=== PATIENT | male | born 1945 | race Caucasian/White ===

== ENCOUNTER 2019-11-13 11:29 | Outpatient (CLI) | payer MEDICARE, SELFPAY ==
[2019-11-14 01:17] LABS: SARS-CoV-2 RNA PCR Positive
== END 2019-11-13 11:30 | disposition home or self-care (01) ==
LOC: CHSLAB 11:35
PROVIDERS: PCP Internal Medicine; Visit Provider Internal Medicine
DX: U07.1 COVID-19 (principal)
CPT/HCPCS: 87635; C9803; U0003

== ENCOUNTER 2021-06-28 02:01 | Day surgery (SDC) | payer MEDICARE, SELFPAY ==
--- NOTE | 2021-06-14 11:05 | PC.NURSE ---
Report to the Outpatient Waiting Room, entrance under the green pavilion located off [facility], at time _0600_ on date _06/28/21_. OR Time: _0730_. - You and your visitor will be asked a series of questions to screen for COVID 19 for your protection. - A mask is required within the hospital. One visitor will be allowed to accompany the patient into the hospital. Patients visitor will be instructed to remain with patient at all times or leave the building. We will allow the visitor to come back to the postoperative area when patient is ready. Preoperative COVID Testing Requirements: NONE Patients may have clear liquids (water, carbonated beverages, clear teas, apple juice) until 3 hours prior to surgery (0430 AM) with a maximum of 20 ounces. - No food from midnight until time of surgery Take the following medications with a SIP of water the morning of surgery: _NONE_ Medications to discontinue per ANESTHESIA - ALL VITAMINS, HERBAL SUPPLEMENTS 3 DAYS PRIOR TO SURGERY, Date to take last dose 06/24/21_ Please no deodorant, or body powder the day of surgery. No jewelry (including any body piercings) or valuables the day of surgery, leave them at home. Please take a shower or bath the night before, or the morning of, surgery with an antibacterial soap. Wear comfortable, loose fitting clothing. - Jewelry must be removed prior to entering the operating room. Rings and piercings that are not removed may be cut off. - The hospital will not accept responsibility for valuables. - Please leave all valuables, including medications, at home the day of surgery. If you are going home after surgery, a licensed wagon driver salesperson must drive you home. - NO public transportation without another adult. - We recommend that an adult stay with you for 24 hours following discharge. - We also recommend that you do not drive, make important decision, drink alcoholic beverages, or take any drugs that were not prescribed by your health care provider for at least 24 hours after your discharge time. Follow any additional instructions given to you from DR. CARRASCO. Instructions given to ___PT and asked if any additional questions and then verbalized understanding. Patient advised to call surgeon office or pre surgery nurse liaison [phone] if any additional questions.
[2021-06-14 11:21] VITALS: BP 144/76; PULSE 52; RESP 20; TEMP 37; O2SAT 97; BMI 38.9
[2021-06-28] VITALS (7 sets, daily range): BP systolic 98–156; BP diastolic 67–85; PULSE 60–72; RESP 16–18; TEMP 36.2–36.6; O2SAT 94–99
[2021-06-28] MEDS: ACETAMINOPHEN 500 MG TABLET 1000 MG PO (06:25)
--- NOTE | 2021-06-28 06:45 | WPDANESEPPF ---
Anes - Initial Pre Proc Eval Procedure: Operation Date: 06/28/21 07:30 Proposed Procedures p Right Thumb Carpal Metacarpal Suspension Arthroplasty, - Jaime Lehman MD s Right Fourth Trigger Finger Release - Jaime Lehman MD Date/Time: 06/28/21 06:45 Surgeon: Jaime Lehman MD Pre Op Diagnosis: right thumb cmc arthritis , rt 4th trigger finger Patient Data Age: 75 Gender: M Height: 1.68 m Weight: 106.6 kg Last Vital Signs Temp 36.6 C 06/28/21 06:42 Pulse 60 06/28/21 06:42 Resp 16 06/28/21 06:42 BP 132/81 06/28/21 06:42 Pulse Ox 99 06/28/21 06:42 Allergies Allergy/AdvReac Type Severity Reaction Status Date / Time codeine Allergy Intermediate severe Verified 06/28/21 06:21 headache Xvqumsv-NLZ-GyX Reductase Allergy Intermediate MUSCLE PAIN Verified 06/28/21 06:21 Inhibitor [Vmlqzlk-Pkw-Jmr Reductase Inhibitor] fluvastatin Allergy Mild Muscle Pain Verified 06/28/21 06:21 rosuvastatin Allergy Mild Muscle Pain Verified 06/28/21 06:21 Garcia Allergy Unknown WILD Uncoded 06/28/21 06:21 CHERRIES CAUSE HIVES Home Medications Medication Instructions Recorded Confirmed Type atenolol 25 mg tablet 25 mg PO HS 08/02/19 06/28/21 History melatonin 5 mg tablet 5 mg PO DAILY PRN tablet 08/02/19 06/28/21 History pitavastatin calcium 4 mg tablet 4 mg PO HS 08/02/19 06/28/21 History cholecalciferol (vitamin D3) 25 25 mcg PO HS 12/06/19 06/28/21 History mcg (1,000 unit) tablet multivitamin 1 tablet PO HS 12/06/19 06/28/21 History citalopram 20 mg PO HS 06/14/21 06/28/21 History Patient hx anesthesia problems: none Family hx anesthesia problems: none Results Review: All pre-operative results and documents have been reviewed as part of the pre-operative evaluation. [facility] Past Medical History Medical History (Updated 06/25/21 @ 14:13 by Mayur Dumont DO) Arthritis of carpometacarpal (CMC) joint of right thumb BMI 39.0-39.9,adult Hyperlipidemia Hypertension Trigger finger, right ring finger Surgical History Surgical History (Updated 06/25/21 @ 14:13 by Mayur Dumont DO) History of appendectomy History of cholecystectomy History of eye surgery History of shoulder surgery rotator cuff repairs Family History Family History Mother Cerebrovascular accident Family history of pancreatic cancer, Onset Age: 74 Patient's mother is Father Malignant neoplasm of prostate, Onset Age: 86 Sibling Cerebrovascular accident Family history of hearing loss Other Acute myocardial infarction Family history of cardiovascular disease Family history of malignant neoplasm of brain Hypertension Social History Social History Smoking packs per day: 1 Smoking cigarettes per day: 20.0 Years smoked: 30 Smoking pack-years: 30.00 Smoking status: Former smoker Tobacco type: cigarettes Second hand tobacco smoke exposure: No Smoking end date: 03/06/99 Alcohol intake: current Substance use: never Substance use type: does not use Living arrangements: with family Gender identity (if verbalized by the patient): Male Spiritual care concerns: No Anes - Eval Final PreProcedure Day of Procedure 06/28/21 06:45 Patient weight: obese Heart: regular rate and rhythm Lungs: clear to auscultation and normal air movement Airway: Mallampati scale class II Neurological: alert and oriented Last oral intake: >/= 8 hours ASA classification: III Emergent: no Anesthetic plan: proceed Anesthesia type and monitoring: general LMA and standard monitoring Results Review: All pre-operative results and documents have been reviewed as part of the pre-operative evaluation. Informed Consent: The patient's anesthetic plan and its attendant risks and benefits were discussed with the patient/family/POA. Questions were
[2021-06-28] MEDS: LACTATED RINGERS 1,000 ML 30 ML IV CONT (06:48)
--- NOTE | 2021-06-28 06:56 | WPDANESPNB ---
Anes - Peripheral Nerve Block Date/Time: 06/28/21 06:56 I have discussed with the patient/family/POA the placement of a peripheral nerve block for post-operative pain management, including associated risks, benefits, complications, and side effects. Alternative methods of post-operative analgesia were detailed. Questions were solicited and answers provided to the satisfaction of the patient/family/POA. Time-Out: A pre-procedural Time-Out was completed immediately before starting the procedure and confirmed: Patient Identification, Site, Procedure, Patient Position and the Availability of Requisite Equipment. Clinical Indications: Acute post-operative pain management requested by the operative surgeon. Nerve Block Insertion Note Anes-nerve block: supraclavicular right Patient position: supine Skin prep: chlorhexidine Needle: 22 gauge, stimulating, insulated echogenic needle. Needle length: 50 mm Technique: ultrasound Injectate: bupivacaine 0.5% with epi 5 mcg/ml (30cc- no epi) Observations: tolerated well Complications: none Procedure start time:: 721 Procedure end time:: 724
--- NOTE | 2021-06-28 07:16 | WPDHPUPDATE1 ---
History and Physical Update Update Date/Time: 06/28/21 07:16 History and Physical has been reviewed, including an updated exam of the patient. There are NO changes in the patient's condition. Risks, benefits, and alternatives have been discussed and questions answered. Patient agrees to proceed with procedure.
[2021-06-28] MEDS: KETOROLAC 15 MG/ML VIAL (*BKC) IV PUSH (07:26)
[2021-06-28] MEDS: ceFAZolin 2 GM/D5W 50 ML 2 GM/50 ML BAG IVPB (07:28)
--- NOTE | 2021-06-28 09:41 | W.PM.PROC2 ---
Procedure Note - Detailed Date of Procedure 06/28/21 Pre-op Diagnosis 1. right thumb cmc arthritis 2. rt 4th trigger finger Post-op Diagnosis Same Procedure Performed 1. Right thumb CMC suspension arthroplasty 2. Right fourth trigger finger release Surgeon Jaime Lehman MD Admissions Counselor Dang Connolly Anesthesia General and Regional Description of Procedure The patient was identified proper site identified. In the preop holding area the anesthesia team performed a right upper extremity block. He was then taken to the operating room transferred to the OR table placing him supine taking care to pad the torso and extremities. After general anesthetic induction and intubation, a nonsterile tourniquet was placed high on the right arm. The right upper extremity was prepped and draped in usual sterile fashion. Extremity was exsanguinated and tourniquet was inflated to 250 mmHg remaining up for approximately 81 minutes. A longitudinal incision was made over the FCR tendon curving radially at the base of the thenar musculature. Subcutaneous tissue bluntly dissected protecting neurovascular structures. A slip of the APL which inserted into the thenar musculature was released and marked for later repair. The thenar musculature was elevated up off of the carpus and the trapezium identified. While protecting the FCR, a trapeziectomy was performed. The a ulnar-sided distally-based 8 cm slip of FCR was then developed hand used to create a sling weaving the tendon slip between the FCR tendon and the APL tendon securing it to itself with 3-0 Ethibond suture. The EPL tendon was advanced on itself and also secured with 3-0 Ethibond suture seating the sling in the trapeziectomy site. This allowed the thumb to sit very nicely in a position of function. The EPB tendon was then reefed also with 3-0 Ethibond taking up the slack in that structure. The wound was irrigated with sterile antibiotic solution. The wrist capsule and thenar musculature were tacked back down with 4-0 Monocryl. The slip of the EPL was reattached to the thenar musculature with 3-0 Ethibond. The wound was irrigated with sterile saline. Skin edges were reapproximated with 3-0 Monocryl and then 4-0 Prolene subcuticular stitch. Steri-Strips were applied. A longitudinal incision was made over the A1 itzel. Subcutaneous tissue was bluntly dissected down to the itzel while protecting the neurovascular bundles. The A1 itzel was identified and then transected longitudinally in line with the incision and tendons. The tendons were delivered into the wound verifying the adequacy of the release. Hemostasis was carried out. The wound was irrigated with sterile saline. Skin edges were reapproximated with 4-0 nylon suture. Sterile dressing was applied. Tourniquet was released. He tolerated the procedure well and was transferred back to a cart, then taken to the recovery area in stable condition. There were no known intraoperative complications. Perioperative antibiotics were administered. Sterile dressings applied and the tourniquet was released. Well-padded thumb spica splint was fashioned. The patient tolerated procedure well . He was awakened extubated and taken to recovery area in stable condition. There were no known intraoperative complications. Estimated blood loss was negligible. Perioperative antibiotics were administered. Estimated Blood Loss -3.0 Tourniquet Time 81 Drains No Packing No Pathology None sent Complications No immediate complications Condition Stable Disposition PACU
== END 2021-06-28 10:55 | disposition home or self-care (01) ==
PROVIDERS: PCP Internal Medicine; Visit Provider Orthopaedic Surgery
PROC: (CPT 25447; principal; 2021-06-28 07:30)
PROC: (CPT 26055; 2021-06-28 07:30)
DX: M18.11 Unilateral primary osteoarthritis of first carpometacarpal joint, right hand (principal); M65.341 Trigger finger, right ring finger; G89.18 Other acute postprocedural pain; I10 Essential (primary) hypertension; E78.5 Hyperlipidemia, unspecified; Z87.891 Personal history of nicotine dependence; E66.9 Obesity, unspecified; Z68.37 Body mass index [BMI] 37.0-37.9, adult
CPT/HCPCS: 25447; 26055; 64415; A9270; J0690; J1100; J1885; J2250; J2370; J2405; J2704; J3010; J7120

== ENCOUNTER 2021-08-18 09:00 | Outpatient (RCR) | payer MEDICARE, SELFPAY ==
--- NOTE | 2021-07-20 11:31 | OTOPEVAL ---
OCCUPATIONAL THERAPY INITIAL EVALUATION REPORT 07/20/21 Thank you for referring Moises Stearns to [facility].? The patient is scheduled to be seen for therapy? 1-2x/week for 4 weeks. Please review, sign, date and return this plan of care REBECCA. I agree with and certify that the following plan of care is medically necessary. 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 Respiratory History Hx COVID-19 Yes: NOV 2020 Gastrointestinal History Hx Appendectomy Yes Hx Cholecystectomy Yes Hx Ulcer Yes: 1960'S Genitourinary History Hx Genitourinary Disorders No Significant History Musculoskeletal History Hx Arthritis Yes Hx Fractures Yes: LT ARM, LT ANKLE Hx Orthopedic Surgery Yes: ORIF LT ARM, ORIF LT ANKLE/HARDWARE REMOVAL, BILATERAL SHOULDERS Hx Other Musculoskeletal Disorders Yes: RT 4TH TRIGGER FINGER, RT THUB ARTHRITIS Hematological History Hx Hematological Disorders No Significant History Endocrine History Hx Endocrine Disorders No Significant History HEENT History Hx Cataracts Yes: BILATERALLY REMOVED Hx Eye Surgery Yes Hx Other HEENT Disorders Yes: READING GLASSES, [place]- HEARING AIDS X2 Integumentary History Hx Excision Skin Lesion Yes: FACE Hx Other Skin Disorders Yes: SKIN CA Reproductive History Hx Reproductive Disorders No Significant History Psychosocial History Hx Psychiatric Disorders No Significant History Pain History History of Any Previous or Ongoing No Significant History Instance of Pain Anesthesia History Hx Anesthesia Reactions No Significant History Other History Hx Cancer Yes: SKIN Hx Implanted Device Yes: LT ARM, POSSIBLY LT LOWER LEG Hx Other Surgeries Yes: BILATERAL BLEPHAROPLASTY Evaluation Information Problem Diagnosis 1st CMC arthroplasty, right hand Onset 06/28/21 Cause OA Subjective Information Patient reports he has been Query Text:As Reported By Patient/ heavily favoring the left hand Family for ADL tasks. He has been using his left to lift/carry objects and when starting his
--- NOTE | 2021-08-18 09:46 | OTOPEVAL ---
OCCUPATIONAL THERAPY RE-EVALUATION REPORT AND DISCHARGE SUMMARY 08/18/21 Surendra is a 75 year-old, right handed male who is 7 weeks s/p right 1st CMC arthroplasty. He has made excellent progress with therapy, noting improvements with functional ROM and strength of the right thumb/wrist. He reports some residual soreness with use, but understands this will get better with time. He is currently independent with all materials and in agreement with discharge. Thank you for referring Moises Stearns to [facility]. Please review, sign, date and return this D/C Note REBECCA. I agree with and certify that the following plan of care is medically necessary. Referring Physician Date Referring Provider: Jaime Lehman MD Evaluation Information Diagnosis 1st CMC arthroplasty, right hand Onset 06/28/21 Cause OA Subjective Information Patient reports that his right Query Text:As Reported By Patient/ hand is doing more with ADLs Family and housework. He states that he continues to compensate when using the hand due to weakness and some residual pain. He is back to using tools, doing some landscaping, and mowing the grass. Pain Assessment Timing of Pain Assessment Timing of Pain Assessment Assessment Pain Scale Pain Scale Used Numeric (1 - 10) Self Report Pain Assessment Right Thumb(s) Reported Pain Level 5 Pain Description Aching Lowest Pain Intensity 0 Greatest Pain Intensity 6 Pain Aggravating Factors Exercise/Activity Pain Score Pain Score 5: Self Report Interventions Used Interventions Used By Clinicians Rest Upper Extremity Range of Motion Wrist Range of Motion Right Wrist Flexion - Active 65 Wrist Extension - Active 50 Wrist Radial Deviation - Active 15 Wrist Ulnar Deviation - Active 30 Wrist Range of Motion Comments Wrist flexion improved from 55* Wrist extension improved from 30* RD improved from 5* UD remained WFL at 30* Finger Range of Motion Right Reason Not Measured WFL/Right Thumb Range of Motion Right Thumb MCP Flexion - Active 35 Thumb IP Flexion - Active 60 Thumb CMC Radial Abduction - Active 45 Thumb CMC Palmar Abduction - Active 45 Thumb Range of Motion Comments MCP flexion improved from 30* IP flexion improved from 55* CMC radial abd improved from 30* CMC palmar abd improved from 35* He is now able to oppose to the base of digit V. Hand G
== END 2021-08-18 14:08 | disposition home or self-care (01) ==
LOC: ANHOT 09:00
PROVIDERS: PCP Internal Medicine; Referring Provider Orthopaedic Surgery; Visit Provider Orthopaedic Surgery
DX: M18.11 Unilateral primary osteoarthritis of first carpometacarpal joint, right hand (principal)
CPT/HCPCS: 97110; 97140; 97165

== ENCOUNTER → 2022-07-15 14:19 | Outpatient (CLI) | payer MEDICARE, SELFPAY ==
--- NOTE | ~2022-07-15 | XR_ITS ---
EXAMINATION: XR chest 2V 07/15/2022 14:35 INDICATION: Cough PROCEDURE: 2 view chest COMPARISON: 11/09/2007 FINDINGS: The lungs are clear. The cardiomediastinal silhouette is within normal limits. There are no pleural effusions. There is no pneumothorax suspected. IMPRESSION: 1: NO ACUTE CARDIOPULMONARY DISEASE. Reviewed, dictated and finalized at location B.
== END ==
PROVIDERS: PCP Internal Medicine; Visit Provider Internal Medicine
DX: R05.9 Cough, unspecified (principal)
CPT/HCPCS: 71046

== ENCOUNTER 2023-01-19 08:07 | Outpatient (CLI) | payer MEDICARE, SELFPAY ==
--- NOTE | ~2023-01-19 | XR_ITS ---
EXAMINATION: XR lg joint inject/asp w image DATE: 01/19/2023 09:00 INDICATION: Left shoulder pain. TECHNIQUE: A time-out was performed to verify the patient's name, date of , and procedure to b e performed. The procedure including the risks, benefits, and alternatives was discussed with the pat ient. Risks discussed included bleeding and infection. The patient understood the risks and agreed to proceed. The skin overlying the left glenohumeral joint was prepped and draped in usual sterile fas hion. Anesthetic was administered with 1% lidocaine subcutaneously. A 22 G needle was advanced unde r fluoroscopic guidance into the joint. Subsequently, injectate consisting of 5 mL 1% lidocaine and 2 2 mL 10 mg/mL Kenalog was instilled. The needle was removed and the entry site was cleaned and virgil ssed. There were no immediate complications. Fluoroscopy exposure time was 0.1 minutes. The total nu mber of images was 1. FINDINGS: Real-time fluoroscopy demonstrates the needle in the left mid humeral joint. Patient's pain prior to procedure:8/10. Patient's pain following the procedure: 04/15. IMPRESSION: 1. Fluoroscopy guided left glenohumeral joint injection of local anesthetic and steroid with decrease in the patient's presenting pain. Reviewed, dictated and finalized at location A. DEVELOPMENT MANAGER
== END 2023-01-19 08:08 | disposition home or self-care (01) ==
PROVIDERS: PCP Internal Medicine; Visit Provider Orthopaedic Surgery
DX: M25.512 Pain in left shoulder (principal)
CPT/HCPCS: 20610; 77002; J3301

== ENCOUNTER 2023-05-24 15:14 | Outpatient (CLI) | payer MEDICARE, SELFPAY ==
--- NOTE | ~2023-05-24 | XR_ITS ---
XR chest 2V DATE: 05/24/2023 15:42 INDICATION: Cough TECHNIQUE: PA and lateral views COMPARISON: 07/15/2022 2 view chest FINDINGS: Normal heart size. Aortic arch calcification. No hilar or mediastinal enlargement. No pulmonary infiltrate or consolidation, pleural effusion or pulmonary vascular congestion or pneumo thorax. Diffuse osteopenia. Dextroscoliosis of the thoracic spine. Status post cholecystectomy. IMPRESSION: No active cardiopulmonary disease Aortic atherosclerosis Osteopenia Reviewed, dictated and finalized at location B.
--- NOTE | ~2023-05-24 | XR_ITS ---
Lumbosacral Spine: AP and lateral views Clinical History: Pain Findings: The normal lordotic curve is maintained. The vertebral bodies and posterior elements are i ntact. The intervertebral disc spaces are preserved. Moderate to advanced facet arthropathy is prese nt throughout the lumbar spine, worst at L4-L5 and L5-S1. The sacroiliac joints are normally outlined . Impression: Extensive facet joint degenerative changes. Reviewed, dictated and finalized at location M. Impression: Extensive facet joint degenerative changes.
== END 2023-05-24 15:15 | disposition home or self-care (01) ==
LOC: ANHIMG 15:16
PROVIDERS: PCP Internal Medicine; Visit Provider Internal Medicine
DX: M54.9 Dorsalgia, unspecified (principal); R05.9 Cough, unspecified; M85.88 Other specified disorders of bone density and structure, other site; I70.0 Atherosclerosis of aorta
CPT/HCPCS: 71046; 72100

== ENCOUNTER 2023-06-12 08:55 | Outpatient (RCR) | payer MEDICARE, SELFPAY ==
--- NOTE | 2023-06-12 09:57 | OPREHPOC ---
Outpatient Therapy Plan of Care This is a Multidisciplinary Plan of Care that may contain components documented by all disciplines (PT, OT, and ST.) PT Problem 1 PT Problem #1 Knowledge Deficit PT Goal 1 Goal Patient to demonstrate independence with HEP Target Visit 2 PT Problem 2 PT Problem #2 Pain PT Goal 1 Goal 1. patient to report highest pain at 2/10 2. 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 patient to report ability to walk >30 minutes with no back pain 2. patient to lift 20# from floor to waist with no increase in low back pain to return to house hold tasks at PLOF 3. patient to score 0% disability on Back Index Target Visit 4
--- NOTE | 2023-06-12 09:57 | PTOPEVAL1 ---
Assessment and note entered by Madelin White DPT Evaluation Information Assessment Status Evaluation Diagnosis low back pain Onset 06/06/23 Subjective Information Patient reports that he has had back pain for years. He reports that about 2 months ago he had a cough and his back pain increased. He reports he has had x-rays and shows severe facet degeneration at L4-L5 and L5-S1. He reports since initial pain started pain has improved with steroid. He reports pain does not radiate. He reports pain is mild. He reports he is able to do all of his activities but has increased soreness following. He reports most difficulty with lifting, walking and bending. 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 Reported Pain Level Pain Score 1: Self Report Assessment PT Clinical Summary Mr. Stearns is a 77 year old male who presents to PT with low back pain. Patient demonstrates impaired posture, decreased lumbar ROM, and decreased LE strength impairing his ability to lift objects from the ground, ambulate prolonged distances and complete house hold tasks. He would benefit from skilled PT to address impairments and return to PLOF. Plan of Care Interventions Electrical Stimulation,Gait Training,Hot Pack/Cold Pack,Manual Therapy,Neuro Re-education,Patient/ Caregiver Educati,Therapeutic Activities, Therapeutic Exercise PT Services Indicated Yes Treatment Frequency and 1x weekly for 4 visits Duration These treatments will address the objective and functional deficits as defined above. The patient will be advanced safely and appropriately in order for the patient to progress towards his/her prior level of function. Additional exercises will be introduced and as well as a comprehensive home exercise program upon discharge, if needed, ?to ensure carryover of functional gains achieved in the clinic. This treatment plan has been reviewed and agreement upon by the patient.
== END 2023-06-19 20:00 | disposition home or self-care (01) ==
LOC: CHSPT 08:55
PROVIDERS: Visit Provider Internal Medicine
DX: M54.9 Dorsalgia, unspecified (principal)
CPT/HCPCS: 97110; 97161

== ENCOUNTER 2023-07-15 20:03 | Observation (INO) | payer MEDICARE, SELFPAY ==
--- NOTE | ~2023-07-15 | CT_ITS ---
EXAMINATION: CTA chest PE protocol DATE: 07/15/2023 23:00 INDICATION: Chest pain TECHNIQUE: Computed tomography angiography (CTA) of the chest was performed with 100 mL Omnipaque-350 intravenous contrast timed to evaluate the pulmonary arteries. Coronal maximum intensity projection 3D-reconstructions were created by the technologist. Automated exposure control and iterative reconst ruction technique were employed. Exam dose: 770.92 mGy-cm total exam DLP. COMPARISON: 07/15/2023 PA and lateral chest FINDINGS: There is diagnostic contrast enhancement of the pulmonary arteries and no evidence of pulmo nary embolism. No thoracic aortic aneurysm or dissection. There is thoracic aortic great vessel coronary artery calc ification. Normal heart size. No pericardial effusion. No hilar or mediastinal mass lesion or lymphadenopathy. No pulmonary consolidation or pulmonary mass lesion is evident. Normal morphology of the adrenal glands. Status post cholecystectomy. Moderately prominent anterior wedge compression fracture deformity of T10, chronic. IMPRESSION: No evidence of pulmonary embolism Reviewed, dictated and finalized at [facility]. Reviewed, dictated and finalized at [facility].
--- NOTE | ~2023-07-15 | XR_ITS ---
EXAMINATION: XR chest 2V Exam Date/Time: 07/15/2023 20:36 CDT HISTORY: chest pain/SOB/ MIDLINE CHEST PAIN, EXTENDS TO BACK. Comparison: 05/24/2023. RESULT: Lines, tubes, and devices: Cholecystectomy clips. Lungs and pleura: Low volumes with crowding, otherwise clear. Cardiomediastinal silhouette: Stable. Other: No acute osseous or upper abdominal finding. Stable old mild compression deformity at T11. IMPRESSION: No acute cardiopulmonary process. Reviewed, dictated and finalized at [facility].
--- NOTE | 2023-07-15 20:04 | ECG_ITS ---
SEE SCANNED COPY FOR CONFIRMED REPORT MTDD
[2023-07-15 20:23] VITALS: BP 153/85; PULSE 67; RESP 19; TEMP 37.2; O2SAT 97
[2023-07-15 20:28] LABS: Basophils Absolute Auto 0.1 K/mm3 (0.0-0.1); Basophils Percent Auto 0.6 % (0.2-1.2); Eosinophils Absolute Auto 0.1 K/mm3 (0-0.3); Eosinophils Percent Auto 1.8 % (0-4.4); Hematocrit 52.6 % (42.0-52.0); Hemoglobin 17.3 g/dL (14.0-18.0); Immature Granulocyte Absolute 0.02 K/mm3 (0.00-0.031); Immature Granulocyte Percent A 0.3 % (0-0.5); Lymphocytes Absolute Auto 2.11 K/mm3 (0.9-3.2); Lymphocytes Percent Auto 26.6 % (18.3-44.2); Mean Corpuscular HGB Conc 32.9 g/dl (32-36); Mean Corpuscular Hemoglobin 31.3 pg (26-34); Mean Corpuscular Volume 95.1 fl (80-100); Mean Platelet Volume 9.5 fl (7.4-10.4); Monocytes Absolute Auto 0.9 K/mm3 (0.1-0.6); Monocytes Percent Auto 10.7 % (2.6-8.5); Neutrophils Absolute Auto 4.8 K/mm3 (1.3-6.7); Platelet Count Result 167 k/mm3 (150-375); Red Blood Count 5.53 M/mm3 (4.6-6.20); Red Cell Distribution Width 13.8 % (11.5-14.5); White Blood Count 7.9 K/mm3 (4.5-10.0)
[2023-07-15 20:42] LABS: Alanine Aminotransferase 25 U/L (6-50); Albumin Level 4.4 g/dL (3.5-5.1); Alkaline Phosphatase 56 U/L (38-126); Anion Gap 7 mmol/L (4-12); Aspartate Amino Transferase 35 U/L (17-59); Bilirubin,Total 0.7 mg/dL (0.2-1.3); Blood Urea Nitrogen 18 mg/dL (9-20); Calcium 9.4 mg/dL (8.4-10.2); Carbon Dioxide 29 mmol/L (22-30); Chloride 102 mmol/L (98-107); Estimated CRCL calculation 52 ml/min; Estimated Glomerular Filt Rate 54; Glucose 100 mg/dL (65-110); Lipase 61 U/L (23-300); Potassium 4.5 mmol/L (3.4-5.0); Sodium 138 mmol/L (137-145)
[2023-07-15 20:45] LABS: Partial Thromboplastin Time 29.7 Seconds (22.3-36.8); Prothrombin Time 13.2 Seconds (11.1-14.7)
[2023-07-15 20:53] LABS: Troponin I < 0.012 ng/mL (0.000-0.034)
--- NOTE | 2023-07-15 22:18 | ED.CHESTPAIN ---
HPI - Chest Pain General Chief Complaint: Chest Pain <Aga Matthews PA-C - Last Filed: 07/16/23 02:09> Stated Complaint: chest pain <Aga Matthews PA-C - Last Filed: 07/16/23 02:09> Time Seen by Provider: 07/15/23 22:08 <Aga Matthews PA-C - Last Filed: 07/16/23 02:09> History of Present Illness HPI narrative: 77-year-old male with a history of obesity, hyperlipidemia, hypertension and V-tach in 2002 presents to the emergency department with his at bedside for chest pain that started around 10:30 a.m.. Patient states he was seated when the chest pain started. He states it has been constant throughout the day is worse with exertion. He states that when he got to the emergency department the chest pain felt somewhat better while he was sitting in a wheelchair in triage, however when he got up from the wheelchair into the exam bed the pain significantly worsened again. He states it is associated shortness of breath and radiates to the center of his back. He denies cough or congestion, lower extremity edema, abdominal pain, recent surgeries or hospitalizations, fever, history of VTE. States he has been compliant with his medications. He denies known history of CAD or stent placement. States he had a cardiac catheterization performed in 2002 which was unremarkable. He has not had a catheterization since. His hand sewer is Dr. Luis. Echo performed on 05/30/2022 is significant for mild concentric left ventricular hypertrophy, mild enlargement of the left ventricle, her diastolic dysfunction grade 1, ejection fraction measured at 52%. Patient endorses a familial cardiac history including his father who had 3 stents placed. <Aga Matthews PA-C - Last Filed: 07/16/23 02:09> Related Data Home Medications: Home Medications Medication Instructions Recorded Confirmed atenolol 25 mg tablet 25 mg PO HS 08/02/19 07/16/23 pitavastatin calcium 4 mg tablet 4 mg PO HS 08/02/19 07/16/23 (Livalo) multivitamin 1 tablet PO HS 08/31/21 07/16/23 venlafaxine 37.5 mg 37.5 mg PO HS 05/12/24 05/12/24 capsule,extended release 24 hr <Aga Matthews PA-C - Last Filed: 07/16/23 02:09> Allergies/Adverse Reactions: Allergies Allergy/AdvReac Type Severity Reaction Status Date / Time codeine Allergy Intermediate severe Verified 05/24/23 13:38 headache Dchxlks-XKR-BoZ Reductase Allergy Intermediate MUSCLE PAIN Verified 05/24/23 13:38 Inhibitor [Ettkcov-Iik-Bkp Reductase Inhibitor] fluvastatin Allergy Mild Muscle Pain Verified 05/24/23 13:38 rosuvastatin Allergy Mild Muscle Pain Verified 05/24/23 13:38 Garcia Allergy Unknown WILD Uncoded 05/24/23 13:38 CHERRIES CAUSE HIVES <Aga Matthews PA-C - Last Filed: 07/16/23 02:09> Review of Systems Review of Systems: CONSTITUTIONAL: Denies fever, chills, or sweats. EYES: Denies visual changes, redness, or discharge. ENT: Denies rhinorrhea, congestion, sore throat, or otalgia. CARDIOVASCULAR: See HPI RESPIRATORY: Denies cough or dyspnea. GASTROINTESTINAL: Denies abdominal pain, nausea, vomiting, or diarrhea. GENITOURINARY: Denies dysuria or hematuria. SKIN: Denies rash or itching. MUSCULOSKELETAL: Denies back pain, joint pain, or myalgia. NEUROLOGIC: Denies headache, numbness, or weakness. PSYCHIATRIC: Denies anxiety or depression. <Aga Matthews PA-C - Last Filed: 07/16/23 02:09> [facility] Past Medical History Medical History: Medical History Bilateral shoulder pain BMI 39.0-39.9,adult Degenerative arthritis of knee, bilateral Hyperlipidemia Hypertension Melanoma of face <Aga Matthews PA-C - Last Filed: 07/16/23 02:09> Surgical History Surgical History: Surgical History Arthritis of carpometacarpal (CMC) joint of right thumb Right thumb CMC suspension arthrop
[2023-07-15] MEDS: ASPIRIN 81 MG CHEWABLE TABLET 324 MG PO (22:35)
[2023-07-15] MEDS: NITROGLYCERIN SL 0.4 MG TABLET SUBLINGUAL (23:07)
[2023-07-15 23:41] VITALS: BP 120/78; PULSE 77; RESP 22; O2SAT 94
[2023-07-15 23:46] VITALS: BP 118/64; PULSE 72; RESP 19; O2SAT 96
[2023-07-15 23:51] VITALS: BP 124/75; PULSE 73; RESP 17; O2SAT 95
[2023-07-15 23:56] VITALS: BP 129/77; PULSE 71; RESP 25; O2SAT 95
[2023-07-16] VITALS (21 sets, daily range): BP systolic 117–136; BP diastolic 69–91; PULSE 67–94; RESP 16–25; TEMP 36.4–36.9; O2SAT 94–100; BMI 42.3
--- NOTE | 2023-07-16 00:19 | PC.NURSE ---
this rn assumed care of patient. this rn took patient report from Hossein Leong.
--- NOTE | 2023-07-16 00:30 | ECG_ITS ---
SEE SCANNED COPY FOR CONFIRMED REPORT MTDD
[2023-07-16 01:27] LABS: NT Pro B Type Natriuretic Pept 203 pg/mL (19.9-100)
[2023-07-16 01:29] LABS: Troponin I < 0.012 ng/mL (0.000-0.034)
--- NOTE | 2023-07-16 01:43 | ADMGEN ---
This patient, Moises Stearns, was admitted to IMU Room 212-01 at 0132. Patient/family oriented to hospital policies and general routines including ID bracelet, bed and alarms, visiting hours, pain management, procedures, bathroom and other care routines, personal items, smoking policy, room service/diet, and visiting hours. Information on how to activate the Rapid Response Team has been discussed. Patient/Family are encouraged to report perceived risks to care and to ask questions if they do not understand what they are told or what they should do.
--- NOTE | 2023-07-16 01:55 | PM.IMHP ---
H&P: HPI History of Present Illness Date/Time: 07/16/23 01:55 Chief Complaint: chest pain Narrative: EXAMINATION:? XR chest 2V Exam Date/Time:? 07/15/2023 20:36 CDT HISTORY: chest pain/SOB/ MIDLINE CHEST PAIN, EXTENDS TO BACK. ? Comparison:? 05/24/2023. RESULT: Lines, tubes, and devices:? Cholecystectomy clips. Lungs and pleura:? Low volumes with crowding, otherwise clear. Cardiomediastinal silhouette:? Stable. Other:? No acute osseous or upper abdominal finding. Stable old mild compression deformity at T11. ? IMPRESSION: No acute cardiopulmonary process. Review of Systems Review of Systems: chest pain PMFSH Past Medical History Medical History Bilateral shoulder pain BMI 39.0-39.9,adult Degenerative arthritis of knee, bilateral Hyperlipidemia Hypertension Melanoma of face Surgical History Surgical History Arthritis of carpometacarpal (CMC) joint of right thumb Right thumb CMC suspension arthroplasty June 28, 2021 History of appendectomy History of cholecystectomy History of eye surgery History of shoulder surgery rotator cuff repairs Trigger finger, right ring finger Right fourth trigger finger release June 28, 2021 Family History Family History (Updated 07/16/23 @ 02:22 by Dang Villegas RN) Mother Patient's mother is Family history of pancreatic cancer, Onset Age: 74 Cerebrovascular accident Father Malignant neoplasm of prostate, Onset Age: 86 Acute myocardial infarction Family history of malignant neoplasm of brain Sibling Family history of hearing loss Cerebrovascular accident Other Family history of cardiovascular disease Hypertension Social History Social History Smoking packs per day: 1 Smoking cigarettes per day: 20.0 Years smoked: 30 Smoking pack-years: 30.00 Smoking status: Former smoker Tobacco type: cigarettes Second hand tobacco smoke exposure: No Smoking end date: 03/06/99 Alcohol intake: former Alcohol use details: Quit 2010 Substance use: never Substance use type: does not use Do You Feel Safe in your Home?: Yes Lack of Transportation: No Lack of Food: Never True Current Housing: I Have Housing Concerned About Future Housing: No Difficulty Paying Gas/Electric Bills: No Difficulty Paying for Meds: No Currently Unemployed: No Education: High School Diploma/GED Difficulty w/ Childcare or Family Care: No Living arrangements: with family Occupation/Education: retired Gender identity (if verbalized by the patient): Male Spiritual care concerns: No Meds Home Medications and Allergies Home Medications Medication Instructions Recorded Confirmed Type atenolol 25 mg tablet 25 mg PO HS 08/02/19 07/16/23 History pitavastatin calcium 4 mg tablet 4 mg PO HS 08/02/19 07/16/23 History (Livalo) multivitamin 1 tablet PO HS 08/31/21 07/16/23 History venlafaxine 37.5 mg 37.5 mg PO HS 07/16/23 07/16/23 History capsule,extended release 24 hr Allergies Allergy/AdvReac Type Severity Reaction Status Date / Time codeine Allergy Intermediate severe Verified 05/24/23 13:38 headache Kiiiygk-BZZ-DdT Reductase Allergy Intermediate MUSCLE PAIN Verified 05/24/23 13:38 Inhibitor [Ljvmuwj-Xfe-Pxn Reductase Inhibitor] fluvastatin Allergy Mild Muscle Pain Verified 05/24/23 13:38 rosuvastatin Allergy Mild Muscle Pain Verified 05/24/23 13:38 Garcia Allergy Unknown WILD Uncoded 05/24/23 13:38 CHERRIES CAUSE HIVES Vital Signs Vital Signs - 24 hr 07/15/23 20:23 07/15/23 22:26 07/15/23 23:41 Temperature 98.9 F Pulse Rate 67 77 Respiratory Rate 19 22 H Blood Pressure 153/85 H 120/78 Pulse Oximetry 97 94 Oxygen Delivery Room Air 07/15/23 23:46 07/15/23 23:51
[2023-07-16] MEDS: traZODone HCL 50 MG TABLET PO (03:18)
[2023-07-16 04:55] LABS: Troponin I < 0.012 ng/mL (0.000-0.034)
--- NOTE | 2023-07-16 16:11 | PM.IMPN ---
Progress Note: A&P Assessment and Plan (1) Chest pain: Qualifiers: Chest pain type: other chest pain Qualified Code(s): R07.89 - Other chest pain Code(s): R07.9 - Chest pain, unspecified Status: Acute Assessment and Plan: Patient with chest pain for many hours that resolved with NTG. Trop negative x3. CTA chest showing no PE and no acute findings. EKG showing NSR with PVCs. Patient had a stress test 07/12/22 showing negative EKG portion with normal myocardial perfusion imaging and normal global LV fxn EF 51% Consider esophageal spasm or food lodged in the distal esophagus. (2) Obesity, Class III, BMI 40-49.9 (morbid obesity): Code(s): E66.01 - Morbid (severe) obesity due to excess calories Status: Acute Assessment and Plan: Educated about the benefits of leading a healthy lifestyle. (3) Degenerative arthritis of knee, bilateral: Qualifiers: Osteoarthritis type: primary Qualified Code(s): M17.0 - Bilateral primary osteoarthritis of knee Code(s): M17.0 - Bilateral primary osteoarthritis of knee Status: Chronic Assessment and Plan: Stable (4) Bilateral shoulder pain: Qualifiers: Chronicity: chronic Qualified Code(s): M25.511 - Pain in right shoulder; M25.512 - Pain in left shoulder; G89.29 - Other chronic pain Code(s): M25.511 - Pain in right shoulder; M25.512 - Pain in left shoulder Status: Chronic Assessment and Plan: Stable Subjective Date/time seen: 07/16/23 16:11 Interval history: 77yo male with HTN, HLD and obesity here for chest pain. Patient developed chest pain that was pressure and radiated to the back on the morning of admission after eating breakfast. He remained at home for about 8 hours before finally coming to the ED for evaluation. He was lifting and moving rugs a week before without chest pain. He does complain of feeling fatigued all the time and can sleep up to 16 hours. He has seen multiple doctors for this and is now on testosterone for the past 6 months. He states the pain resolved after taking NTG within 5 minutes. No GERD. No n/v. He currently feels 'sore' in the chest. Had diarrhea x6 BMs yesterday. No sick contacts. No melana or hematochezia Exam Narrative: AF 98.5 131/76 82 18 95% ra Gen - NARD Chest - CTA bilaterally, nml RR CV - RRR S1/S2. Tele showing NSR with PVCs Abd - Soft, NT/ND, Positive BS Ext - No pedal edema Psych - Nml mood and affect Skin - Warm and dry Objective Data Vital Signs Vital Signs: Vital Signs - 24 hr 07/15/23 20:23 07/15/23 22:26 07/15/23 23:41 Temperature 98.9 F Pulse Rate 67 77 Respiratory Rate 19 22 H Blood Pressure 153/85 H 120/78 Pulse Oximetry 97 94 Oxygen Delivery Room Air 07/15/23 23:46 07/15/23 23:51 07/15/23 23:56 Temperature Pulse Rate 72 73 71 Respiratory Rate 19 17 25 H Blood Pressure 118/64 124/75 129/77 Pulse Oximetry 96 95 95 Oxygen Delivery 07/16/23 00:01 07/16/23 00:06 07/16/23 00:11 Temperature Pulse Rate 75 70 72 Respiratory Rate 20 20 17 Blood Pressure 123/77 130/91 H 130/79 Pulse Oximetry 95 97 94 Oxygen Delivery 07/16/23 00:16 07/16/23 00:21 07/16/23 00:26 Temperature Pulse Rate 70 70 69 Respiratory Rate 25 H 23 H 21 H Blood Pressure 118/78 122/69 133/73 Pulse Oximetry 97 95 96 Oxygen Delivery 07/16/23 00:31 07/16/23 02:00 07/16/23 02:18 Temperature 97.6 F Pulse Rate 71 67 68 Respiratory Rate 21 H 21 H Blood Pressure 131/79 132/79 Pulse Oximetry 97 100 Oxygen Delivery 07/16/23 02:00 07/16/23 01:52 07/16/23 04:56 Temperature 97.7 F Pulse Rate 70 81 Respiratory Rate 21 H Blood Pressure 117/69 Pulse Oximetry 95 Oxygen Delivery Room Air 07/16/23 04:00 07/16/23 04:00 07/16/23 06:00 Temperature Pulse Rate 73 70 Respiratory Rate Blood Pressure Pulse Oximetry Oxygen Delivery Room Air
--- NOTE | 2023-07-16 16:51 | PM.DS ---
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 (morbid obesity): Code(s): E66.01 - Morbid (severe) obesity due to excess calories Status: Acute (5) Degenerative arthritis of knee, bilateral: Qualifiers: Osteoarthritis type: primary Qualified Code(s): M17.0 - Bilateral primary osteoarthritis of knee Code(s): M17.0 - Bilateral primary osteoarthritis of knee Status: Chronic (6) Bilateral shoulder pain: Qualifiers: Chronicity: chronic Qualified Code(s): M25.511 - Pain in right shoulder; M25.512 - Pain in left shoulder; G89.29 - Other chronic pain Code(s): M25.511 - Pain in right shoulder; M25.512 - Pain in left shoulder Status: Chronic DS: Summary Hospital Course Reason for hospitalization: 77yo male with HTN, HLD and obesity here for chest pain. Please see H&P for details. Hospital Course: Patient developed chest pain that was pressure and radiated to the back on the morning of admission after eating breakfast. He remained at home for about 8 hours before finally coming to the ED for evaluation. He was lifting and moving rugs a week before without chest pain. He does complain of feeling fatigued all the time and can sleep up to 16 hours but this is long standing and other providers have addressed this complaint already. The chest pain resolved after taking NTG within 5 minutes in the ED. No GERD. No n/v. He currently feels 'sore' in the chest but no further pain. Mils palpable chest wall pain. Had diarrhea x6 BMs yesterday but no nausea or vomiting. No sick contacts. No melana or hematochezia. Trop negative x3. CTA chest showing no PE and no acute findings. EKG showing NSR with PVCs. Patient had a stress test 07/12/22 showing negative EKG portion with normal myocardial perfusion imaging and normal global LV fxn EF 51%. He was able to eat yesterday for lunch and dinner but not much due to feeling full quickly. Eating did not make the pain worse. He does not take excessive NSAIDs. Consider esophageal spasm or food lodged in the distal esophagus that passed with smooth muscle relaxation with NTG. He feels well. He is eating normally. He overall did well and was able to be discharged home on 07/16/23 Status at Discharge Cognitive/behavioral status at discharge: stable Time Spent with Patient Time attestation: Total time spent providing and/or coordinating discharge services: 34 minutes Time spent: Greater than 30 minutes Exam Narrative: AF 98.5 131/76 82 18 95% ra Gen - NARD Chest - CTA bilaterally, nml RR CV - RRR S1/S2. Tele showing NSR with PVCs Abd - Soft, NT/ND, Positive BS Ext - No pedal edema Psych - Nml mood and affect Skin - Warm and dry DS: Data Data Completed and Pending Labs on day of discharge: Labs from last 24 hours 07/16/23 07/16/23 07/15/23 03:57 00:55 20:22 WBC 7.9 RBC 5.53 Hgb 17.3 Hct 52.6 H MCV 95.1 MCH 31.3 MCHC 32.9 RDW 13.8 Plt Count 167 MPV 9.5 Immature Gran % (Auto) 0.3 Neut % (Auto) 60.0 Lymph % (Auto) 26.6 Tripp % (Auto) 10.7 H Eos % (Auto) 1.8 Baso % (Auto) 0.6 Lymph # (Auto) 2.11 Tripp # (Auto) 0.9 H Eos # (Auto) 0.1 Baso # (Auto) 0.1 Abs Immat Gran (auto) 0.02 Absolute Neuts (auto) 4.8 Absolute Nucleated RBC 0.000 Nucleated RBC % 0.0 PT 13.2 INR 1.0 APTT 29.7 Sodium 138 Potassium 4.5 Chloride 102 Carbon Dioxide 29 A
== END 2023-07-16 19:15 | disposition home or self-care (01) ==
LOC: ANHED 07-16 00:31 → ANHIMU 07-16 01:17
PROVIDERS: Preventive Medicine Aerospace Medicine; Admitting Provider Internal Medicine; Emergency Provider Physician Assistant; PCP Internal Medicine; Visit Provider Internal Medicine
DX: R07.89 Other chest pain (principal); R06.02 Shortness of breath; M17.0 Bilateral primary osteoarthritis of knee; M25.511 Pain in right shoulder; M25.512 Pain in left shoulder; G89.29 Other chronic pain; I10 Essential (primary) hypertension; E78.5 Hyperlipidemia, unspecified; E66.01 Morbid (severe) obesity due to excess calories; Z68.41 Body mass index [BMI] 40.0-44.9, adult; Z87.891 Personal history of nicotine dependence
CPT/HCPCS: 36415; 71046; 71275; 80053; 83690; 83880; 84484; 85025; 85610; 85730; 93005; 99285; A9270; G0378; Q9967

== ENCOUNTER 2023-08-14 00:38 | Day surgery (SDC) | payer MEDICARE, SELFPAY ==
[2023-08-07 10:11] VITALS: BMI 42.9
[2023-08-14 07:38] VITALS: BP 149/80; PULSE 69; RESP 18; TEMP 36.2; O2SAT 95; BMI 41.1
[2023-08-14] MEDS: LACTATED RINGERS 1,000 ML 150 ML IV CONT (08:01)
--- NOTE | 2023-08-14 08:11 | WPDANESEPPF ---
Anes - Initial Pre Proc Eval Procedure: Operation Date: 08/14/23 09:00 Proposed Procedures p Esophagogastroduodenoscopy&Screen Colon - Calvin Karimi MD Date/Time: 08/14/23 08:11 Surgeon: Calvin Karimi MD Pre Op Diagnosis: Dyskinesia of esophagus, Neoplasm screening Patient Data Age: 77 Gender: M Height: 1.65 m Weight: 112.1 kg Last Vital Signs Temp 97.2 F L 08/14/23 07:38 Pulse 69 08/14/23 07:38 Resp 18 08/14/23 07:38 BP 149/80 H 08/14/23 07:38 Pulse Ox 95 08/14/23 07:38 O2 Del Method Room Air 08/14/23 07:38 Allergies Allergy/AdvReac Type Severity Reaction Status Date / Time codeine Allergy Intermediate severe Verified 08/14/23 07:47 headache Rvbbblj-VIA-RuK Reductase Allergy Intermediate MUSCLE PAIN Verified 08/14/23 07:47 Inhibitor [Vgmecut-Upi-Zyx Reductase Inhibitor] fluvastatin Allergy Mild Muscle Pain Verified 08/14/23 07:47 rosuvastatin Allergy Mild Muscle Pain Verified 08/14/23 07:47 Garcia Allergy Unknown WILD Uncoded 08/14/23 07:47 CHERRIES CAUSE HIVES Home Medications Medication Instructions Recorded Confirmed Type atenolol 25 mg tablet 25 mg PO HS 08/02/19 08/14/23 History pitavastatin calcium 4 mg tablet 4 mg PO HS 08/02/19 08/14/23 History (Livalo) multivitamin 1 tablet PO HS 08/31/21 08/14/23 History venlafaxine 37.5 mg 37.5 mg PO HS 07/16/23 08/14/23 History capsule,extended release 24 hr (Effexor XR) nitroglycerin 0.4 mg sublingual 0.4 mg sublingual PRN PRN Chest 08/07/23 08/14/23 History tablet Pain Patient hx anesthesia problems: none Family hx anesthesia problems: none Results Review: All pre-operative results and documents have been reviewed as part of the pre-operative evaluation. [facility] Past Medical History Medical History (Updated 07/16/23 @ 16:52 by Andrew Gaxiola MD) Bilateral shoulder pain BMI 39.0-39.9,adult Degenerative arthritis of knee, bilateral Hyperlipidemia Hypertension Melanoma of face Surgical History Surgical History Arthritis of carpometacarpal (CMC) joint of right thumb Right thumb CMC suspension arthroplasty June 28, 2021 History of appendectomy History of cholecystectomy History of eye surgery History of shoulder surgery rotator cuff repairs Trigger finger, right ring finger Right fourth trigger finger release June 28, 2021 Family History Family History (Updated 07/16/23 @ 02:22 by Dang Villegas RN) Mother Patient's mother is Family history of pancreatic cancer, Onset Age: 74 Cerebrovascular accident Father Malignant neoplasm of prostate, Onset Age: 86 Acute myocardial infarction Family history of malignant neoplasm of brain Sibling Family history of hearing loss Cerebrovascular accident Other Family history of cardiovascular disease Hypertension Social History Social History Smoking packs per day: 1 Smoking cigarettes per day: 20.0 Years smoked: 30 Smoking pack-years: 30.00 Smoking status: Former smoker Tobacco type: cigarettes and pipe Second hand tobacco smoke exposure: No Smoking end date: 03/06/99 Alcohol intake: former Drinks per week: 3 Alcohol use details: none since 2010 Substance use: never Substance use type: does not use Do You Feel Safe in your Home?: Yes Lack of Transportation: No Lack of Food: Never True Current Housing: I Have Housing Concerned About Future Housing: No Difficulty Paying Gas/Electric Bills: No Difficulty Paying for Meds: No Currently Unemployed: No Education: High School Diploma/GED Difficulty w/ Childcare or Family Care: No Living arrangements: with family Occupation/Education: retired Gender identity (if verbalized by the patient): Male Spiritual care concerns: No Anes - Eval F
--- NOTE | 2023-08-14 08:45 | PM.HPGS ---
History of Present Illness History of Present Illness Consent: Risks, benefits, and alternatives have been discussed and questions answered. Patient agrees to proceed with procedure. Chief complaint: Dyskinesia of esophagus, Neoplasm screening Narrative: Moises Stearns is a 77 year old male here with non cardiac chest pain, also needs screening colonoscopy- last one 10 years ago Review of Systems Review of Systems: All systems reviewed & are unremarkable except as noted in HPI and below PMFSH Past Medical History Medical History (Updated 08/14/23 @ 08:46 by Calvin Karimi MD) Bilateral shoulder pain BMI 39.0-39.9,adult Colon cancer screening Degenerative arthritis of knee, bilateral Hyperlipidemia Hypertension Melanoma of face Non-cardiac chest pain Surgical History Surgical History Arthritis of carpometacarpal (CMC) joint of right thumb Right thumb CMC suspension arthroplasty June 28, 2021 History of appendectomy History of cholecystectomy History of eye surgery History of shoulder surgery rotator cuff repairs Trigger finger, right ring finger Right fourth trigger finger release June 28, 2021 Family History Family History (Updated 07/16/23 @ 02:22 by Dang Villegas RN) Mother Patient's mother is Family history of pancreatic cancer, Onset Age: 74 Cerebrovascular accident Father Malignant neoplasm of prostate, Onset Age: 86 Acute myocardial infarction Family history of malignant neoplasm of brain Sibling Family history of hearing loss Cerebrovascular accident Other Family history of cardiovascular disease Hypertension Social History Social History Smoking packs per day: 1 Smoking cigarettes per day: 20.0 Years smoked: 30 Smoking pack-years: 30.00 Smoking status: Former smoker Tobacco type: cigarettes and pipe Second hand tobacco smoke exposure: No Smoking end date: 03/06/99 Alcohol intake: former Drinks per week: 3 Alcohol use details: none since 2010 Substance use: never Substance use type: does not use Do You Feel Safe in your Home?: Yes Lack of Transportation: No Lack of Food: Never True Current Housing: I Have Housing Concerned About Future Housing: No Difficulty Paying Gas/Electric Bills: No Difficulty Paying for Meds: No Currently Unemployed: No Education: High School Diploma/GED Difficulty w/ Childcare or Family Care: No Living arrangements: with family Occupation/Education: retired Gender identity (if verbalized by the patient): Male Spiritual care concerns: No Meds Home Medications and Allergies Home Medications Medication Instructions Recorded Confirmed Type atenolol 25 mg tablet 25 mg PO HS 08/02/19 08/14/23 History pitavastatin calcium 4 mg tablet 4 mg PO HS 08/02/19 08/14/23 History (Livalo) multivitamin 1 tablet PO HS 08/31/21 08/14/23 History venlafaxine 37.5 mg 37.5 mg PO HS 07/16/23 08/14/23 History capsule,extended release 24 hr (Effexor XR) nitroglycerin 0.4 mg sublingual 0.4 mg sublingual PRN PRN Chest 08/07/23 08/14/23 History tablet Pain Allergies Allergy/AdvReac Type Severity Reaction Status Date / Time codeine Allergy Intermediate severe Verified 08/14/23 07:47 headache [id number] Reductase Allergy Intermediate MUSCLE PAIN Verified 08/14/23 07:47 Inhibitor [[id number]-Dsk-Xto Reductase Inhibitor] fluvastatin Allergy Mild Muscle Pain Verified 08/14/23 07:47 rosuvastatin Allergy Mild Muscle Pain Verified 08/14/23 07:47 Agrcia Allergy Unknown WILD Uncoded 08/14/23 07:47 CHERRIES CAUSE HIVES Vital Signs Vital Signs - 24 hr 08/14/23 07:38 Temperature 97.2 F L Pulse Rate 69 Respiratory Rate 18 Blood Pressure 149/80 H Pulse Oximetry 95 Oxygen Delivery Room Air Exam Const:
--- NOTE | 2023-08-14 09:20 | SUR.OPER ---
EGD start 855 end 899. Colonoscopy start 904.
[2023-08-14 09:22] VITALS: BP 106/75; PULSE 73; RESP 23; O2SAT 98
[2023-08-14 09:32] VITALS: BP 113/78; PULSE 65; RESP 20; O2SAT 95
[2023-08-14 09:42] VITALS: BP 123/80; PULSE 68; RESP 20; O2SAT 96
== END 2023-08-14 09:54 | disposition home or self-care (01) ==
PROVIDERS: PCP Internal Medicine; Visit Provider Internal Medicine Gastroenterology
PROC: 0DJ08ZZ Inspection of Upper Intestinal Tract, Via Natural or Artificial Opening Endoscopic (ICD-10-PCS; CPT 43235; principal; 2023-08-14 09:00)
DX: Z12.11 Encounter for screening for malignant neoplasm of colon (principal); K63.5 Polyp of colon; D12.3 Benign neoplasm of transverse colon; K57.30 Diverticulosis of large intestine without perforation or abscess without bleeding; K64.8 Other hemorrhoids; K44.9 Diaphragmatic hernia without obstruction or gangrene; K29.50 Unspecified chronic gastritis without bleeding; B96.81 Helicobacter pylori [H. pylori] as the cause of diseases classified elsewhere; I10 Essential (primary) hypertension; E78.5 Hyperlipidemia, unspecified; Z87.891 Personal history of nicotine dependence; E66.01 Morbid (severe) obesity due to excess calories; Z68.41 Body mass index [BMI] 40.0-44.9, adult
CPT/HCPCS: 45385; 45380; 43239; 88305; J1596; J2001; J2704; J7120

== ENCOUNTER 2024-01-29 10:15 | Outpatient (CLI) | payer MEDICARE, SELFPAY ==
--- NOTE | ~2024-01-29 | XR_ITS ---
XR shoulder LT min 2V Ordering provider: Susi Dash History: . FLAVIO GENERAL SHOULDER PAIN,LROM,CHRONIC OVERUSE . Comparison: None. FINDINGS: BONES: No acute fracture or dislocation. Degenerative changes in the greater tuberosity with elevatio n of the humeral head. JOINT SPACES: The acromioclavicular joint shows mild osteoarthritic changes. The glenohumeral joint s hows mild osteoarthritic changes with inferior osteophyte. SOFT TISSUES: Normal. IMPRESSION: No acute osseous abnormality left shoulder. Mild osteoarthritic changes of the acromioclavicular and glenohumeral joints. Elevation of the humeral head which may indicate rotator cuff tear. MRI is advised. Reviewed, dictated and finalized at location A. CRANE OPERATOR IMPRESSION: No acute osseous abnormality left shoulder. Mild osteoarthritic changes of the acromioclavicular and glenohumeral joints. Elevation of the humeral head which may indicate rotator cuff tear. MRI is advi sed.
--- NOTE | ~2024-01-29 | XR_ITS ---
XR shoulder RT min 2V Ordering provider: Madhuri Napier History: . FLAVIO GENERAL SHOULDER PAIN,LROM,CHRONIC OVERUSE . Comparison: None. FINDINGS: BONES: No acute fracture or dislocation. Degenerative changes in the area of the greater tuberosity. JOINT SPACES: The acromioclavicular joint shows osteoarthritic changes. The glenohumeral joint is nor mal. SOFT TISSUES: Normal. IMPRESSION: No acute osseous abnormality right shoulder. Osteoarthritic changes of the acromioclavicular joint with degenerative changes in the area of the gr eater tuberosity. Reviewed, dictated and finalized at location A. AL SPRAYER IMPRESSION: No acute osseous abnormality right shoulder. Osteoarthritic changes of the acromioclavicular joint with degenerative changes in the area of the greater tuberosity.
== END 2024-01-29 10:16 | disposition home or self-care (01) ==
LOC: CHSIMG 10:20
PROVIDERS: PCP Internal Medicine
DX: M25.512 Pain in left shoulder (principal); M25.511 Pain in right shoulder; M19.012 Primary osteoarthritis, left shoulder; M19.011 Primary osteoarthritis, right shoulder
CPT/HCPCS: 73030